=== PATIENT | female | born 1995 | race Caucasian/White ===

== ENCOUNTER 2017-09-20 10:43 | Emergency (ER) | payer OTHER ==
--- NOTE | 2017-09-20 14:53 | UC ---
Lower Extremity/Ankle HPI - HPI Summary HPI Summary: states that yesterday late afternoon she was walking downhill and everted left ankle. Initially she felt acute pain and sat down, after which pain decreased to 2-3/10 and she was able to walk home. At night she had recurrence of pain and she took ibuprofen this morning because pain was 7/10. Now pain is 4-5/10 at rest and increases with ambulation. Hx of fracture of left foot 6 years ago. - History of Current Complaint Chief Complaint: UCLowerExtremity Stated Complaint: ANKLE INJURY Time Seen by Provider: 09/20/17 11:58 Hx Obtained From: Patient Hx Last Menstrual Period: 09/06/17 ?: No Onset/Duration: Sudden Onset Severity Currently: Mild Pain Intensity: 3 Pain Scale Used: 0-10 Numeric Aggravating Factor(s): Standing, Ambulation Alleviating Factor(s): Rest, Elevation, Ice, OTC Meds Able to Bear Weight: Yes - Risk Factors Gout Risk Factors: Negative DVT Risk Factors: Negative Septic Arthritis Risk Factor: Negative - Allergies/Home Medications Allergies/Adverse Reactions: Allergies Allergy/AdvReac Type Severity Reaction Status Date / Time No Known Allergies Allergy Verified 09/20/17 11:03 Home Medications: Home Medications Desogestrel-Ethinyl Estradiol [Caziant 0.1/0.125/0.15 -0.025 mg] 1 eric PO DAILY 09/20/17 [History Confirmed 09/20/17] Ibuprofen 400 mg PO Q6H PRN 09/20/17 [History Confirmed 09/20/17] PMH/Surg Hx/FS Hx/Imm Hx Previously Healthy: Yes - Surgical History Surgical History: None - Social History Alcohol Use: Occasionally Substance Use Type: None Smoking Status (MU): Never Smoked Tobacco Review of Systems Constitutional: Negative Musculoskeletal: Arthralgia Is Patient Immunocompromised?: Yes All Other Systems Reviewed And Are Negative: Yes Physical Exam Triage Information Reviewed: Yes Appearance: Well-Appearing, No Pain Distress, Well-Nourished Vital Signs: Initial Vital Signs Temp 98 F 09/20/17 10:59 Pulse 79 09/20/17 10:59 Resp 16 09/20/17 10:59 BP 115/73 09/20/17 10:59 Pulse Ox 100 09/20/17 10:59 Vital Signs Reviewed: Yes Eyes: Positive: Conjunctiva Clear Neck: Positive: Supple, Nontender, No Lymphadenopathy Cardiovascular: Positive: Pulses Normal, Brisk Capillary Refill Musculoskeletal: Positive: ROM Intact, Edema @ - latero inferior aspect of lateral malleolus left ankle. [place] negative, non tender on lateral/medial malleolus, navicular area or proximal 5th metatarsal area. No bruising noticed. Patient able to walk with a limp Lower Extremity Course/Dx - Course Course Of Treatment: Ankle sprain, continue RICE, ibuprofen 600mg po three times a day for 24 hrs then prn, use crutches to aid with ambulation, splint applied, start ROM as tolerated in 48 hr - Differential Dx/Diagnosis Provider Diagnoses: left ankle sprain Discharge - Sign-Out/Discharge Documenting (check all that apply): Discharge - Discharge Plan Condition: Stable Disposition: HOME Patient Education Materials: Ankle Sprain (ED), Ibuprofen (By mouth) Referrals: No Primary Care Phys,NOPCP [Primary Care Provider] - [facility] [place] [facility] [Outside] - Billing Disposition and Condition Condition: STABLE Disposition: HOME
== END 2017-09-20 12:45 | disposition home or self-care (01) ==
LOC: UCEAST 10:43
DX: S93.402A Sprain of unspecified ligament of left ankle, initial encounter (principal); X37.1XXA Tornado, initial encounter; Y93.01 Activity, walking, marching and hiking; Y92.828 Other wilderness area as the place of occurrence of the external cause
CPT/HCPCS: 99203; G0463